=== PATIENT | male | born 1950 | race Caucasian/White ===

== ENCOUNTER 2023-02-24 11:54 | Outpatient (CLI) | payer MEDICARE ==
[2023-02-24 15:31] LABS: #Monocytes 0.5 10x3/uL (0.0-1.1); #Neutrophils 3.8 10x3/uL (1.5-8.4); %Basophils 0.5 % (0.0-2.0); %Eosinophils 0.5 % (0.0-6.0); %Lymphocytes 30.3 % (18.0-47.0); %Monocytes 7.7 % (0.0-10.0); %Neutrophils 60.8 % (40.0-75.0); Hemoglobin 15.2 g/dL (13.5-17.5); Mean Corpuscular Hemoglobin 32.7 pg (27.0-33.0); Mean Corpuscular Volume 96.1 fl (81.2-95.1); Platelet Count 210 10x3/uL (150-450); RBC Distribution Width 12.2 % (11.5-14.5); Red Blood Cell (RBC) Count 4.65 10x6/uL (4.32-5.72); White Blood Cell (WBC) Count 6.2 10x3/uL (3.5-10.5)
[2023-02-24 15:50] LABS: Anion Gap 13 mmol/L (10-20); BUN (Urea Nitrogen) 14 mg/dL (8.4-25.7); Calc. Creatinine Clearance 0 mL/min (70-130); Calcium 9.1 mg/dL (7.8-10.44); Carbon Dioxide 24 mmol/L (23-31); Chloride 109 mmol/L (98-107); Estimated GFR 92; Glucose 89 mg/dL (83-110); Potassium 4.1 mmol/L (3.5-5.1); Sodium 142 mmol/L (136-145)
== END 2023-02-24 11:55 | disposition home or self-care (01) ==
LOC: LABBT 11:54
PROVIDERS: ATTEND Surgery
DX: Z01.812 Encounter for preprocedural laboratory examination (principal); K40.20 Bilateral inguinal hernia, without obstruction or gangrene, not specified as recurrent
CPT/HCPCS: 80048; 85025

== ENCOUNTER 2023-03-25 07:10 | Day surgery (SDC) | payer MEDICARE ==
[2023-03-23 10:50] VITALS: BMI 25.3
[2023-03-25] MEDS ORDERED: fentaNYL PF 100 MCG/2 ML SYRINGE ONE (09:12)
[2023-03-25] MEDS ORDERED: Bupivacaine/Epinephrine 0.25% 30 ML VIAL ONE (09:20)
[2023-03-25] MEDS ORDERED: CEFAZOLIN 2 GM VIAL ONE (09:25)
[2023-03-25] MEDS ORDERED: Sodium Chloride 0.9% 100 ML ONE (09:25)
[2023-03-25] MEDS ORDERED: PROPOFOL 200 MG/20 ML VIAL ONE (09:39)
[2023-03-25] MEDS ORDERED: Dexamethasone 20 MG/5 ML VIAL ONE (09:39)
[2023-03-25] MEDS ORDERED: Ondansetron PF 4 MG/2 ML Vial ONE (09:39)
[2023-03-25] MEDS ORDERED: NEOSTIGMINE 3 MG/3 ML SYR 3 MG/3 ML SYRINGE ONE (09:39)
[2023-03-25] MEDS ORDERED: Rocuronium Bromide 10 MG/ML (10ML VIAL) ONE (09:39)
[2023-03-25] MEDS ORDERED: GLYCOPYRROLATE/PF 0.2 MG/ML VIAL ONE ×2 (09:39)
[2023-03-25] MEDS ORDERED: Lidocaine 1% PF 5 ML VIAL ONE (09:39)
[2023-03-25] MEDS ORDERED: fentaNYL 50 mcg/mL 1 mL Vial ONE (12:12)
[2023-03-25] MEDS ORDERED: HYDROcodone/Acetaminophen 5/325 mg Tablet ONE (14:06)
== END 2023-03-25 15:05 | disposition home or self-care (01) ==
LOC: SDC 07:10
PROVIDERS: ATTEND Surgery
PROC: 0YUA4JZ Supplement Bilateral Inguinal Region with Synthetic Substitute, Percutaneous Endoscopic Approach (ICD-10-PCS; principal; 2023-03-25)
PROC: 8E0W4CZ Robotic Assisted Procedure of Trunk Region, Percutaneous Endoscopic Approach (ICD-10-PCS; 2023-03-25)
DX: K40.20 Bilateral inguinal hernia, without obstruction or gangrene, not specified as recurrent (principal); Z87.891 Personal history of nicotine dependence; Z79.82 Long term (current) use of aspirin; Z79.899 Other long term (current) drug therapy; Z95.5 Presence of coronary angioplasty implant and graft
CPT/HCPCS: 49650; J3010; C1781; J1100; J2405; J2704; J3490